=== PATIENT | female | born 1975 | race American Indian/Alaskan Native ===

== ENCOUNTER 2016-09-17 13:44 | Emergency (ER) | payer OTHER, MEDICAID ==
[2016-09-17 14:09] VITALS: BP 117/81
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
[2016-09-17] MEDS ORDERED: TORADOL IM ONE (15:44)
[2016-09-17 16:33] LABS: Creatine Kinase MB 1.9 ng/mL (0.0-4.0)
[2016-09-17 16:36] LABS: Creatine Kinase 257 units/L (30-135)
== END 2016-09-17 16:43 | disposition home or self-care (01) ==
LOC: ED 13:44
DX: S20.212A Contusion of left front wall of thorax, initial encounter (principal); M25.562 Pain in left knee; F17.200 Nicotine dependence, unspecified, uncomplicated; V43.62XA Car passenger injured in collision with other type car in traffic accident, initial encounter; W22.11XA Striking against or struck by driver side automobile airbag, initial encounter; Y93.89 Activity, other specified; Y99.8 Other external cause status; Y92.89 Other specified places as the place of occurrence of the external cause
CPT/HCPCS: 36415; 71010; 73562; 82550; 82553; 84484; 96372; 99284; J1885